=== PATIENT | male | born 1990 | race Caucasian/White ===

== ENCOUNTER 2017-01-30 18:54 | Emergency (ER) | payer OTHER ==
[2017-01-30 20:02] VITALS: BP 135/69
[2017-01-30] MEDS ORDERED: Lidocaine 2% PF * 5 ML VIAL ONE (20:52)
[2017-01-30] MEDS ORDERED: Cephalexin CAP* 500 MG PO ONE (21:15)
--- NOTE | 2017-01-30 21:33 | UC ---
Skin Complaint HPI - HPI Summary HPI Summary: SPLINTER IN RIGHT SECOND FINGER 6PM, UNABLE TO GET SPLINTER OUT BY HIMSELF. TETANUS UTD - History of Current Complaint Chief Complaint: UCUpperExtremity Time Seen by Provider: 01/30/17 20:21 Stated Complaint: SPLINTER UNDER FINGERNAIL Hx Obtained From: Patient Onset/Duration: Sudden Onset, Lasting Hours, Still Present Skin Exposure Onset/Duration: Hours Ago Onset Severity: Mild Current Severity: Mild Location: Discrete - RIGHT SECOND FINGER Character: Pain Aggravating: Touch Alleviating: Nothing Associated Signs & Symptoms: Positive: Tenderness Related History: Foreign Body - SPLINTER RIGHT 2ND FINGER - Allergy/Home Medications Allergies/Adverse Reactions: Allergies Allergy/AdvReac Type Severity Reaction Status Date / Time No Known Allergies Allergy Verified 01/30/17 19:57 Review of Systems Constitutional: Negative Skin: Other - SPLINTER RIGHT SECOND FINGER Eyes: Negative ENT: Negative Respiratory: Negative Cardiovascular: Negative Gastrointestinal: Negative Genitourinary: Negative Motor: Negative Neurovascular: Negative Musculoskeletal: Negative Neurological: Negative Psychological: Negative All Other Systems Reviewed And Are Negative: Yes PMH/Surg Hx/FS Hx/Imm Hx Previously Healthy: Yes - Surgical History Surgical History: Yes Surgery Procedure, Year, and Place: thumb repair -2008. hernia repair -1996 - Family History Known Family History: Negative: Blood Disorder - Social History Occupation: Student Lives: Alone Alcohol Use: None Substance Use Type: None Smoking Status (MU): Never Smoked Tobacco Physical Exam Triage Information Reviewed: Yes Appearance: Well-Appearing, No Pain Distress, Well-Nourished Vital Signs: Initial Vital Signs Temp 97.9 F 01/30/17 19:57 Pulse 49 01/30/17 19:57 Resp 16 01/30/17 19:57 BP 135/69 01/30/17 19:57 Pulse Ox 98 01/30/17 19:57 Vital Signs Reviewed: Yes Eye Exam: Normal ENT Exam: Normal ENT: Positive: Normal ENT inspection, Hearing grossly normal, Pharynx normal, TMs normal Dental Exam: Normal Neck exam: Normal Neck: Positive: Supple, Nontender, No Lymphadenopathy Respiratory Exam: Normal Respiratory: Positive: Chest non-tender, Lungs clear, Normal breath sounds, No respiratory distress Cardiovascular Exam: Normal Cardiovascular: Positive: RRR, No Murmur Abdominal Exam: Normal Musculoskeletal Exam: Normal Musculoskeletal: Positive: Strength Intact, ROM Intact, No Edema Neurological Exam: Normal Psychological Exam: Normal Psychological: Positive: Normal Response To Family Skin: Positive: Other - FOREIGN BODY (SPLINTER) RIGHT SECOND FINGER - Additional Comments FOREIGN BODY (SPLINTER) RIGHT SECOND FINGER, REMOVED USING DIGITAL BLOCK WITH 2 % LIDOCAINE AND SPLINTER FORCEPS. PATIENT TOLERATED PROCEDURE WELL Course/Dx - Differential Diagnoses - Skin Complaint Differential Diagnoses: Cellulitis, Foreign Body - Diagnoses Provider Diagnoses: FOREIGN BODY (SPLINTER) RIGHT SECOND FINGER. FOREIGN BODY REMOVED Discharge - Discharge Plan Condition: Stable Disposition: HOME Prescriptions: Cephalexin CAP* [Keflex CAP*] 500 mg PO TID #15 cap Patient Education Materials: Soft Tissue Foreign Body (ED) Referrals: [facility] [Outside] No Primary Care Phys,NOPCP [Primary Care Provider] -
== END 2017-01-30 21:29 | disposition home or self-care (01) ==
LOC: UCEAST 18:54
DX: S60.456A Superficial foreign body of right little finger, initial encounter (principal); W45.8XXA Other foreign body or object entering through skin, initial encounter
CPT/HCPCS: 10120; 99212; A9270-GY; G0463